=== PATIENT | male | born 1985 | race Caucasian/White ===

== ENCOUNTER 2017-06-10 08:21 | Emergency (ER) | payer SELFPAY ==
[~2017-06-10] VITALS: Ht 193 cm; Wt 120.2 kg
[2017-06-10] MEDS ORDERED: THROAT SPRAY177 M1 MM (08:31)
== END 2017-06-10 08:38 | disposition home or self-care (01) ==
LOC: ED 08:21
DX: Z00.8 Encounter for other general examination (principal)